=== PATIENT | female | born 1980 | race Caucasian/White ===

== ENCOUNTER 2017-05-25 06:43 | Emergency (ER) ==
[2017-05-25 06:51] VITALS: BP 140/86; TEMP 100.3; BMI 49.4
[2017-05-25] MEDS ORDERED: ZOFRAN 4 MG/2 ML IVP STA ×2 (07:04→09:14)
[2017-05-25] MEDS ORDERED: PROTONIX IV IVP STA (07:04)
[2017-05-25] MEDS ORDERED: MORPHINE 4 MG/ML VIAL IVP STA (07:04)
[2017-05-25] MEDS ORDERED: SODIUM CHLORIDE 1,000 ML IV STA ×2 (07:04→09:39)
--- NOTE | 2017-05-25 07:12 | ED.PDOC ---
General ED Provider: Dr. GAYATRI STEWART Chief Complaint: Nausea/Vomiting Stated Complaint: Patient states she has been having nausea and vomiting for the past 3 days. Also complains of mid upper back pain that has been getting worse over the past two days. Denies any abdomimal pain. Denies vomiting of bile or blood. States the pain is severe. Time Seen by Physician: 07:00 Mode of Arrival: Walk-In Information Source: Patient Nursing and Triage Documentation Reviewed and Agree: Yes GI Complaint Exam - Vomiting/Diarrhea Complaint/Exam Onset/Duration: 3 days Symptoms Are: Still present Episodes of Vomiting over last 24 Hours: 5 Initial Severity: Severe Current Severity: Severe Character of Vomiting: Reports: Non-bilious Aggravating: Reports: Food Associated Signs and Symptoms: Denies: Dizziness, Light-headedness, Melena, Hematemesis, Fever, Abdominal pain, Cramping Non-GI Risk Factors: Reports: None Surgical Obstruction Risk Factors: Reports: None Related Surgical History: Reports: None Abdominal Findings: Present: None Kussmaul Respirations Present: No Differential Diagnoses: Cholelithiasis, Viral Gastroenteritis, UTI Review of Systems - Review Of Systems Constitutional: Reports: No symptoms Eyes: Reports: No symptoms Ears, Nose, Mouth, Throat: Reports: No symptoms Respiratory: Reports: No symptoms Cardiac: Reports: No symptoms GI: Reports: Nausea, Vomiting : Reports: No symptoms Musculoskeletal: Reports: Back pain Skin: Reports: No symptoms Neurological: Reports: No symptoms Endocrine: Reports: No symptoms Hematologic/Lymphatic: Reports: No symptoms All Other Systems: Reviewed and Negative Past Medical History - Past Medical History Previously Healthy: Yes Endocrine: Reports: None Cardiovascular: Reports: None Respiratory: Reports: None Hematological: Reports: None Gastrointestinal: Reports: None Genitourinary: Reports: None Neuro/Psych: Reports: None Musculoskeletal: Reports: None Cancer: Reports: None Last Menstrual Period: 05/17/17 - Surgical History General Surgical History: Reports: None - Family History Family History: Reports: Cancer (Grand mother with history of breast cncer. ) - Social History Smoking Status: Never smoker Hx Substance Use: No Alcohol Screening: Occasionally - Immunizations Tetanus Shot up to Date: Yes Physical Exam - Physical Exam Appearance: Ill-appearing Ill-appearing: Mild Pain Distress: Severe Eyes: EOMI, Conjunctiva clear ENT: Nose normal, Oropharynx normal Neck: Supple Respiratory: Airway patent, Breath sounds clear, Breath sounds equal, Respirations nonlabored Cardiovascular: RRR, Pulses normal, No rub, No murmur GI/: Soft, Nontender, No masses, Bowel sounds normal, No Organomegaly Musculoskeletal: Normal strength, ROM intact, No edema, No calf tenderness Skin: Warm, Dry, Normal color Neurological: Sensation intact, Motor intact, Alert, Oriented Psychiatric: Affect appropriate, Mood appropriate Interpretation - Radiology Interpretation Radiology Interpretation By: Radiologist Radiology Results: Positive Exam Interpreted: CT Scan (Chest ) Radiology Interpretation By: Radiologist Radiology Results: Positive Exam Interpreted: CT Scan (Soft Tissue mass seen within the subcarinal space measuring up to 49 cm in height. concerning for primary neoplasm vs lymphoma) Critical Care Note - Critical Care Note Total Time (mins): 0 Course - Course Hematology/Chemistry: 05/25/17 07:25 05/25/17 07:25 Orders, Labs, Meds: Lab Review 05/25/17 05/25/17 05/25/17 07:25 07:25 07:25 WBC 22.86 H RBC 4.43 Hgb 13.1 Hct 38.5 MCV 86.9 MCH 29.6 MCHC 34.0 RDW Coeff of Kesha 12.9 Plt Count 293 Immature Gran % (Auto) 0.6 Neut % (Auto) 87.2 Lymph % (Auto) 5.1 L [place] % (Auto) 6.9 Eos % (Auto) 0.0 Baso % (Auto) 0.2 Immature Gran # (Auto) 0.1 Neut # 19.9 H Lymph # 1.2 [place] # 1.6 Eos # 0.0 Baso # 0.1 Sodium 137 Potassium 4.2 Chloride 100 Carbon Dioxide 25 Anion Gap 16.2 BUN 6 L Creatinine 0.84 Estimated GFR (MDRD) 77.00 BUN/Creatinine Ratio 7.14 Glucose 144 H Uric Acid Calcium 10.0 Total Bilirubin 1.34 H AST 23 ALT 23 Alkaline Phosphatase 104 H Lactate Dehydrogenase Total Protein 8.1 Albumin 3.4 Globulin 4.7 Albumin/Globulin Ratio 0.72 Amylase 12 L Lipase 9 Serum , Qual Negative Urine Color Urine Clarity Urine pH Ur Specific Hibbs Urine Protein Urine Glucose (UA) Urine Ketones Urine Blood Urine Nitrite Urine Bilirubin Urine Urobilinogen Ur Leukocyte Esterase Urine Microscopic RBC Urine Microscopic WBC Ur Squamous Epith Cells Ur Renal Epithelial Cell Amorphous Sediment Urine Bacteria Urine Mucus 05/25/17 05/25/17 07:40 10:17 WBC RBC Hgb Hct MCV MCH MCHC RDW Coeff of Kesha Plt Count Immature Gran % (Auto) Neut % (Auto) Lymph % (Auto) [place] % (Auto) Eos % (Auto) Baso % (Auto) Immature Gran # (Auto) Neut # Lymph # [place] # Eos # Baso # Sodium Potassium Chloride Carbon Dioxide Anion Gap BUN Creatinine Estimated GFR (MDRD) BUN/Creatinine Ratio Glucose Uric Acid 3.9 Calcium Total Bilirubin AST ALT Alkaline Phosphatase Lactate Dehydrogenase 244 H Total Protein Albumin Globulin Albumin/Globulin Ratio Amylase Lipase Serum , Qual Urine Color [place] Urine Clarity Hazy Urine pH 6.0 Ur Specific Hibbs 1.020 Urine Protein 2+ Urine Glucose (UA) Negative Urine Ketones 3+ Urine Blood 2+ Urine Nitrite Negative Urine Bilirubin 1+ Urine Urobilinogen 1.0 Ur Leukocyte Esterase Negative Urine Microscopic RBC 5-10 Urine Microscopic WBC 2-5 Ur Squamous Epith Cells 5-10 Ur Renal Epithelial Cell 0-2 Amorphous Sediment Trace Urine Bacteria 1+ Urine Mucus 2+ Orders Category Date Time Status NPO REMINDER: IMAGING ONCE CARE 05/25/17 09:39 Completed ED IV/MEDIPORT/POWERPORT .ONCE EMERGENCY 05/25/17 07:04 Active AMYLASE Stat LAB 05/25/17 07:25 Completed CBC W/ AUTO DIFF Stat LAB 05/25/17 07:25 Completed COMPREHENSIVE METABOLIC PANEL Stat LAB 05/25/17 07:25 Completed LACTATE DEHYDROGENASE Stat LAB 05/25/17 10:17 Completed LIPASE Stat LAB 05/25/17 07:25 Completed SERUM Stat LAB 05/25/17 07:25 Completed URIC ACID Stat LAB 05/25/17 10:17 Completed URINALYSIS C & S IF INDICATED Stat LAB 05/25/17 07:40 Completed URINE CULTURE Stat LAB 05/25/17 07:54 Received 0.9 % Sodium Chloride [Saline Flush] MEDS 05/25/17 07:04 Active 1 syr IVF PRN PRN Ketorolac Tromethamine [Toradol] MEDS 05/25/17 09:14 Discontinued 30 mg IVP ONCE STA Morphine Sulfate [Morphine 2 mg/ml Syringe] MEDS 05/25/17 09:14 Discontinued 2 mg IVP ONCE STA Morphine Sulfate [Morphine 4 mg/ml Vial] MEDS 05/25/17 07:04 Discontinued 4 mg IVP ONCE STA Ondansetron HCl/Pf [Zofran 4 mg/2 ml] MEDS 05/25/17 07:04 Discontinued 4 mg IVP ONCE STA Ondansetron HCl/Pf [Zofran 4 mg/2 ml] MEDS 05/25/17 09:14 Discontinued 4 mg IVP ONCE STA Pantoprazole Sodium [Protonix IV] MEDS 05/25/17 07:04 Discontinued 40 mg IVP ONCE STA Sodium Chloride 0.9% [Sodium Chloride] 1,000 ml MEDS 05/25/17 07:04 Discontinued IV BOLUS Sodium Chloride 0.9% [Sodium Chloride] 1,000 ml MEDS 05/25/17 09:[address] ABD/PEL WO RENAL STONE PROT Stat RADS 05/25/17 08:[address] CHEST W/CONTRAST Stat RADS 05/25/17 09:[address] CHEST W/O CONTRAST Stat RADS 05/25/17 08:11 Completed Medications Generic Name Dose Route Start Last Admin Trade Name Freq PRN Reason Stop Dose Admin Sodium Chloride 1 syr 05/25/17 07:04 05/25/17 07:25 Saline Flush IVF 1 syr PRN PRN Administration To flush IV Discontinued Medications Generic Name Dose Route Start Last Admin Trade Name Freq PRN Reason Stop Dose Admin Sodium Chloride 1,000 mls @ 1,000 mls/hr 05/25/17 07:04 05/25/17 07:30 Sodium Chloride IV 05/25/17 08:03 1,000 mls/hr BOLUS STA Administration Sodium Chloride 1,000 mls @ 1,000 mls/hr 05/25/17 09:39 05/25/17 08:45 Sodium Chloride IV 05/25/17 10:38 1,000 mls/hr BOLUS STA Administration Ketorolac Tromethamine 30 mg 05/25/17 09:14 05/25/17 09:33 Toradol IVP 05/25/17 09:15 30 mg ONCE STA Administration Morphine Sulfate 4 mg 05/25/17 07:04 05/25/17 07:50 Morphine 4 Mg/Ml Vial IVP 05/25/17 07:05 4 mg ONCE STA Administration Morphine Sulfate 2 mg 05/25/17 09:14 05/25/17 09:33 Morphine 2 Mg/Ml Syringe IVP 05/25/17 09:15 2 mg ONCE STA Administration Ondansetron HCl 4 mg 05/25/17 07:04 05/25/17 07:47 Zofran 4 Mg/2 Ml IVP 05/25/17 07:05 4 mg ONCE STA Administration Ondansetron HCl 4 mg 05/25/17 09:14 05/25/17 09:29 Zofran 4 Mg/2 Ml IVP 05/25/17 09:15 4 mg ONCE STA Administration Pantoprazole Sodium 40 mg 05/25/17 07:04 05/25/17 07:56 Protonix Iv IVP 05/25/17 07:05 40 mg ONCE STA Administration Vital Signs: Temp Pulse Resp BP Pulse Ox 05/25/17 06:46 100.3 F H 113 H 20 140/86 98 Departure - Departure Time of Disposition: 11:05 Disposition: HOME SELF-CARE Discharge Problem: Nausea, Vomiting, Mediastinum neoplasm Instructions: Soft Tissue Chest Tumor (ED) Condition: Fair Pt referred to PMD for follow-up: Yes Referrals: HILDA WHITNEY [REFERRING] - Additional Instructions: Follow up with PCP in 3 days Take pain medications as needed for pain. Follow up with foam cutting supervisor--dr whitney on saturday Prescriptions: Hydrocodone/Acetaminophen [[place] 5-325 Tablet] 1 tab PO Q6HR PRN #20 tablet PRN Reason: PAIN Promethazine HCl [Phenergan Tab] 25 mg PO Q6H PRN #15 tablet PRN Reason: Nausea / Vomiting Allergies/Adverse Reactions: Allergies No Known Allergies Allergy (Unverified 05/25/17 06:58) Home Medications: Ambulatory Orders Hydrocodone/Acetaminophen [[place] 5-325 Tablet] 1 tab PO Q6HR PRN #20 tablet Ondansetron HCl [Zofran] 4 mg PO Q4HR PRN 05/25/17 Promethazine HCl [Phenergan Tab] 25 mg PO Q6H PRN #15 tablet 05/25/17 Disposition Discussed With: Patient, Family
[2017-05-25 07:29] LABS: BASOPHILS # (AUTO) 0.1 K/uL (0-0.2); BASOPHILS % (AUTO) 0.2 % (0.0-3.0); HEMATOCRIT 38.5 % (37.0-47.0); HEMOGLOBIN 13.1 g/dl (12.0-16.0); IMMATURE GRANULOCYTE % (AUTO) 0.6 % (0.0-5.0); LYMPHOCYTES # (AUTO) 1.2 K/uL (0.60-3.4); LYMPHOCYTES % (AUTO) 5.1 (10.0-50.0); MEAN CORPUSCULAR HEMOGLOBIN 29.6 pg (27.0-31.0); MEAN CORPUSCULAR VOLUME 86.9 fl (81.0-99.0); MONOCYTES # (AUTO) 1.6 K/uL (0.4-2.0); MONOCYTES % (AUTO) 6.9 (0-10); NEUTROPHILS # (AUTO) 19.9 K/ul (2.0-6.9); NEUTROPHILS % (AUTO) 87.2; PLATELET COUNT 293 10^3/uL (140-440); RED BLOOD COUNT 4.43 10^6/ul (4.20-5.40)
[2017-05-25 07:33] LABS: WHITE BLOOD COUNT 22.86 K/ul (4.6-10.2)
[2017-05-25 07:45] LABS: SERUM PREGNANCY INTERNAL QC INTERNAL QC VALID
[2017-05-25 07:50] LABS: ALBUMIN 3.4 g/dL (3.4-5.0); ALBUMIN/GLOBULIN RATIO 0.72; ANION GAP 16.2; BILIRUBIN,TOTAL 1.34 mg/dL (0.00-1.20); BUN/CREATININE RATIO 7.14; CREATININE 0.84 mg/dL (0.60-1.30); POTASSIUM 4.2 mmol/L (3.5-5.10); TOTAL PROTEIN 8.1 g/dL (6.4-8.2)
[2017-05-25 07:51] LABS: BILIRUBIN,URINE 1+ (NEGATIVE); KETONES,URINE 3+ (NEGATIVE); LEUKOCYTE ESTERASE ,URINE Negative (NEGATIVE); NITRITE,URINE Negative (NEGATIVE); PROTEIN,URINE 2+ (NEGATIVE); URINE, BLOOD 2+ (NEGATIVE)
[2017-05-25 07:53] LABS: ADD URINE MICROSCOPIC YES
[2017-05-25 07:55] LABS: BACTERIA,URINE 1+ (NOT PRESENT)
--- NOTE | 2017-05-25 09:01 | CT ---
EXAM: CT chest without intravenous contrast 05/25/2017. Sagittal and coronal reformatted images obt ained HISTORY: Back pain COMPARISON: None. FINDINGS: The heart size appears within normal limits. There is pathologic appearing mediastinal ly mphadenopathy. Pretracheal lymph node on image 27 measures 1.3 cm AP diameter. Subcarinal lymph nod e on image 34 measures 3.6 cm AP diameter. Further workup is recommended. Noncalcified nodule in the left lung base on image 43 measures 8 mm diameter. 4 mm noncalcified nodul e in the right middle lobe can be seen on image 37. Trace right pleural effusion with overlying atel ectasis. No acute osseous abnormality the thoracic spine. IMPRESSION: 1. Pathologic appearing mediastinal lymphadenopathy. Reference measurements above. Further workup is recommended. Contrast enhanced CT could be considered. PET-CT may be of benefit. 2. Bilateral noncalcified nodules. Right middle lobe nodule measures 4 mm. Left lower lobe nodule measures 8 mm. 3. Trace right pleural effusion with overlying atelectasis.
--- NOTE | 2017-05-25 09:02 | CT ---
EXAM: CT scan of the abdomen and pelvis without contrast HISTORY: Vomiting TECHNIQUE: Imaging of the abdomen pelvis was performed without contrast. 3 mm thin axial images and coronal and sagittal reconstructions were provided for interpretation. FINDINGS: Low density changes are seen throughout the liver. The spleen, pancreas, adrenal glands a nd kidneys appear normal. The proximal ureters are normal size. The small and large bowel loops are normal caliber. There is no free air. No acute abnormalities are seen within the anterior abdomina l wall. There is a normal appearance of the appendix. No retroperitoneal abnormalities are seen. The helical images obtained through the pelvis demonstrate a normal appearance of the rectum, urinary bladder. There is no free fluid seen within the pelvis. Lung bases are clear. No lytic or blastic lesions are seen within the osseous structures. IMPRESSION: There is no bowel obstruction or acute inflammatory changes seen within the abdomen and pelvis. There is no ureteral obstruction. Fatty infiltration of the liver.
[2017-05-25] MEDS ORDERED: MORPHINE 2 MG/ML SYRINGE IVP STA (09:14)
[2017-05-25] MEDS ORDERED: TORADOL IVP STA (09:14)
--- NOTE | 2017-05-25 10:24 | CT ---
EXAM: CT scan of the chest with contrast HISTORY: Abnormal lymph nodes within the chest. TECHNIQUE: Imaging of the chest was performed following the intravenous administration of contrast. 5 mm thin axial images and coronal and sagittal reconstructions were provided for interpretation. Comparison CT scan of the chest dated 05/25/2017. FINDINGS: There is abnormal soft tissue mass seen within the subcarinal space seen on axial image nu mber 31. The findings measure approximately 3.5 cm AP, 4.4 cm transverse, and 4.9 cm in height. An a dditional smaller lymph node is identified more superiorly anterior to the trachea seen on axial imag e number 25 measuring approximately 13 mm along the short axis. No lytic or blastic lesions are seen within the osseous structures. IMPRESSION: Abnormal soft tissue mass lesion seen within the subcarinal space as described above valentin suring up to 4.9 cm in height. The findings are concerning for a primary neoplasm of the mediastinum versus lymphoma. Small right pleural effusion.
[2017-05-25 11:08] LABS: URIC ACID 3.9 mg/dL (2.4-6.0)
== END 2017-05-25 12:05 | disposition home or self-care (01) ==
LOC: ED 06:43
DX: R11.2 Nausea with vomiting, unspecified (principal); D49.89 Neoplasm of unspecified behavior of other specified sites; M54.6 Pain in thoracic spine
CPT/HCPCS: 36415; 74176; 80053; 81001; 82150; 83615; 83690; 84550; 84703; 85025; 87086; 96361; 96374; 96375; 96376; 99283

== ENCOUNTER 2017-05-29 00:28 | Emergency (ER) ==
[2017-05-29 00:28] VITALS: BMI 49.4
[2017-05-29] MEDS ORDERED: SOLU-MEDROL 125 MG IM STA (01:22)
[2017-05-29] MEDS ORDERED: TORADOL IVP STA (01:22)
[2017-05-29] MEDS ORDERED: SODIUM CHLORIDE 1,000 ML IV STA ×2 (01:25→03:09)
[2017-05-29] MEDS ORDERED: ZOFRAN 4 MG/2 ML IVP STA (01:25)
[2017-05-29] MEDS ORDERED: SOLU-MEDROL 125 MG IVP STA (01:43)
[2017-05-29] MEDS ORDERED: RACEPINEPHRINE 2.25% NEB STA (01:44)
--- NOTE | 2017-05-29 01:49 | ED.PDOC ---
General ED Provider: Dr. GAYATRI STEWART Chief Complaint: Sore Throat Stated Complaint: Patient is a 36 year old female who complains of sore throat and, has had fever, chills, vomiting the last week. She was seen in this ER Saturday with vomiting had work-up that showed a mass on the chest. [facility] and was sent home with no further workup. She then saw Dr. Miner Lung docotor in [place] who thought it was sarcoidosis or reactive disease and did not plan on a bronchosopy rather that he would like to rescan her in 4-6 weeks. She was however not placed on any antibiotics. She has had sinus drainage, sore throat from vomiting so much. She has had decreased appetite and cannot keep water down, patient states right side of neck is sore with some difficulty breathing. States feels like neck is sore and tightened unable to sleeping. States she has been coughing up white to yellow thick phlegm. Patient is breathing shallow, stating that if she takes deep breaths that right side of her neck hurts worse. Been having a lot of hiccups, denies emesis over the past 24 hours. She also had fever of 100.3 days ago Time Seen by Physician: 01:43 Mode of Arrival: Walk-In Information Source: Patient, Family Exam Limitations: Clinical condition Nursing and Triage Documentation Reviewed and Agree: Yes EENT Complaint Exam - Throat Complaint/Exam Onset/Duration: 2 days Symptoms Are: Still present Timimg: Constant Initial Severity: Moderate Current Severity: Severe Aggravating: Reports: Eating Alleviating: Reports: None Associated Signs and Symptoms: Reports: Dysphagia, Cough, Difficulty breathing. Denies: Vomiting Uvula Midline: Yes Kasandra-tonsillar Fluctuence: No Scarlatinaform Rash Present: No Lesions: Absent: Lip, Gums, Tongue, Buccal Mucosa, Pharynx Exanthem: Absent: Lip, Gums, Tongue, Buccal Mucosa, Pharynx Vesicles: Absent: Lip, Gums, Tongue, Buccal Mucosa, Pharynx Stridor Present: No Sinus Tenderness Present: No Tonsillar Hypertrophy Present: No Tonsillar Exudate Present: No Kasandra-tonsillar Swelling Present: Yes Adenopathy Present: Yes (left neck ) Differential Diagnoses: Sinusitis, Tonsillitis, URI Quality Indicators For Pneumonia: Antibiotics in 6hr-admit Quality Indicators for Non-Traumatic CP and Syncope: EKG performed Review of Systems - Review Of Systems Constitutional: Denies: Fever Eyes: Reports: No symptoms Ears, Nose, Mouth, Throat: Reports: Throat pain Respiratory: Reports: Cough Cardiac: Denies: Chest pain GI: Reports: No symptoms : Reports: No symptoms Musculoskeletal: Reports: No symptoms Skin: Reports: No symptoms Neurological: Reports: Anxiety Endocrine: Reports: No symptoms Hematologic/Lymphatic: Reports: No symptoms All Other Systems: Reviewed and Negative Past Medical History - Past Medical History Previously Healthy: Yes Endocrine: Reports: None Cardiovascular: Reports: None Respiratory: Reports: None Hematological: Reports: None Gastrointestinal: Reports: None Genitourinary: Reports: None Neuro/Psych: Reports: None Musculoskeletal: Reports: None Cancer: Reports: None Last Menstrual Period: 05/17/17 - Surgical History General Surgical History: Reports: None - Family History Family History: Reports: Cancer (Grand mother with history of breast cncer. ) - Social History Smoking Status: Never smoker Hx Substance Use: No Alcohol Screening: Occasionally - Immunizations Tetanus Shot up to Date: Yes Physical Exam - Physical Exam Appearance: Ill-appearing, Obese Ill-appearing: Severe Pain Distress: Moderate Eyes: JUSTA, Conjunctiva clear ENT: Ears normal, Dry mucosa Neck: Supple Respiratory: Airway patent, Breath sounds equal, Breath sounds diminished, Respirations nonlabored Cardiovascular: No rub, Tachycardia GI/: Soft, Nontender Musculoskeletal: No edema Skin: Warm, Dry Neurological: Sensation intact, Motor intact Psychiatric: Anxious Interpretation - Radiology Interpretation Radiology Interpretation By: Radiologist Radiology Results: Positive (critical abscess on the neck) Exam Interpreted: Other (Soft tissue neck ) - Trench Pipe Layer Rate: Tachy Rhythm: Sinus - EKG Interpretation Time of EKG #1: 01:05 Rate: Tachy Rhythm: Sinus Ectopy: None [place]: NL ST Segment: Normal Interpretation: Diffuse S-T Elevation consistent with Pericarditis. Re-Evaluation - Re-Evaluation Time of Re-Evaluation: 03:40 Status: Improved Vital Signs Stable: Yes Physician Notification - Case Discussed Physician Notified: Dr. Nathan Time of Notification: 02:50 (accepted to [place] telemetry but family decided Jennifer due to soft tissue Neck findings and no one is flying) Physician Notified: Dr. Gaetano Puente Time of Notification: 03:00 (accepted to PCU ) Critical Care Note - Critical Care Note Total Time (mins): 85 Course - Course Hematology/Chemistry: 05/29/17 01:45 05/29/17 01:45 Orders, Labs, Meds: Orders Category Date Time Status ED IV/MEDIPORT/POWERPORT .ONCE EMERGENCY 05/29/17 01:25 Active BLOOD CULTURE Stat LAB 05/29/17 01:25 Ordered CBC W/ AUTO DIFF Stat LAB 05/29/17 01:20 Ordered COMPREHENSIVE METABOLIC PANEL Stat LAB 05/29/17 01:20 Ordered LACTIC ACID Stat LAB 05/29/17 01:25 Ordered MONONUCLOSIS SCREEN Stat LAB 05/29/17 Ordered PROCALCITONIN Stat LAB 05/29/17 01:25 Ordered RAPID FLU A/B Stat LAB 05/29/17 01:24 Ordered STREP SCREEN Stat LAB 05/29/17 01:24 Ordered 0.9 % Sodium Chloride [Saline Flush] MEDS 05/29/17 01:25 Ordered 1 syr IVF PRN PRN Ketorolac Tromethamine [Toradol] MEDS 05/29/17 01:22 Discontinued 30 mg IVP ONCE STA Methylprednisolone Sod Succ/Pf [Solu-Medrol 125 mg] MEDS 05/29/17 01:43 Stat 125 mg IVP ONCE STA Ondansetron HCl/Pf [Zofran 4 mg/2 ml] MEDS 05/29/17 01:25 Discontinued 4 mg IVP ONCE STA Sodium Chloride 0.9% [Sodium Chloride] 1,000 ml MEDS 05/29/17 01:25 Active IV BOLUS CHEST, 1V AP ONLY Stat RADS 05/29/17 01:20 Ordered Medications Generic Name Dose Route Start Last Admin Trade Name Freq PRN Reason Stop Dose Admin Sodium Chloride 1,000 mls @ 1,000 mls/hr 05/29/17 01:25 05/29/17 01:35 Sodium Chloride IV 05/29/17 02:24 1,000 mls/hr BOLUS STA Administration Methylprednisolone Sodium Succinate 125 mg 05/29/17 01:43 Solu-Medrol 125 Mg IVP 05/29/17 01:44 ONCE STA Sodium Chloride 1 syr 05/29/17 01:25 05/29/17 01:38 Saline Flush IVF 1 syr PRN PRN Administration To flush IV Discontinued Medications Generic Name Dose Route Start Last Admin Trade Name Freq PRN Reason Stop Dose Admin Ketorolac Tromethamine 30 mg 05/29/17 01:22 Toradol IVP 05/29/17 01:23 ONCE STA Ondansetron HCl 4 mg 05/29/17 01:25 Zofran 4 Mg/2 Ml IVP 05/29/17 01:26 ONCE STA Vital Signs: Temp Pulse Resp BP Pulse Ox 05/29/17 00:29 96.7 F L 113 H 36 H 135/89 94 L Departure - Departure Time of Disposition: 03:45 Disposition: TSF SHORT-TRM HOSP Discharge Problem: Pharyngeal abscess, Elevated liver enzymes Sepsis Qualifiers: Sepsis type: sepsis due to unspecified organism Qualified Code(s): A41.9 - Sepsis, unspecified organism Acute renal failure (ARF) Qualifiers: Acute renal failure type: unspecified Qualified Code(s): N17.9 - Acute kidney failure, unspecified Instructions: Pharyngitis (ED) Condition: Critical Pt referred to PMD for follow-up: No Allergies/Adverse Reactions: Allergies No Known Allergies Allergy (Verified 05/29/17 00:48) Home Medications: Ambulatory Orders Hydrocodone/Acetaminophen [[place] 5-325 Tablet] 1 tab PO Q6HR PRN #20 tablet Promethazine HCl [Phenergan Tab] 25 mg PO Q6H PRN #15 tablet 05/25/17 Diazepam [Valium] 10 mg PO BEDTIME PRN 05/29/17 Pt. Stabilized Within Hospital's Capabilities/Transferred To: [facility] Transfer Form Completed: Yes Disposition Discussed With: Patient, Family
[2017-05-29] MEDS ORDERED: ROCEPHIN 500 MG in SODIUM CHLORIDE 50 ML IV STA (01:50)
[2017-05-29] MEDS ORDERED: ZITHROMAX 500 MG in SODIUM CHLORIDE 250 ML IV STA (01:50)
[2017-05-29 01:57] LABS: HEMATOCRIT 32.8 % (37.0-47.0); HEMOGLOBIN 11.5 g/dl (12.0-16.0); MEAN CORPUSCULAR HEMOGLOBIN 29.6 pg (27.0-31.0); MEAN CORPUSCULAR HGB CONC 35.1 (31.8-35.4); MEAN CORPUSCULAR VOLUME 84.5 fl (81.0-99.0); PLATELET COUNT 409 10^3/uL (140-440); RED BLOOD COUNT 3.88 10^6/ul (4.20-5.40); WHITE BLOOD COUNT 31.14 K/ul (4.6-10.2)
[2017-05-29] MEDS ORDERED: ROCEPHIN ONE (01:59)
[2017-05-29 02:01] LABS: MONO INTERNAL QC INTERNAL QC VALID
--- NOTE | 2017-05-29 02:04 | DI ---
Exam: Chest one-view History: Cough and weakness FINDINGS: Technically inhibited study secondary to light radiographic technique, body habitus limita tions and markedly diminished lung volumes. Bibasilar lung opacities favoring atelectasis. Normal p ulmonary vasculature. No obvious consolidative or infiltrative opacities. No acute chest wall abnor mality. Impression: Technically inhibited study. Bibasilar opacities favoring atelectasis. Pneumonia not e xcluded on the left.
[2017-05-29 02:06] LABS: ANISOCYTOSIS NOT PRESENT (NOT PRESENT)
[2017-05-29 02:08] LABS: FLU INTERNAL QC INTERNAL QC VALID; RAPID FLU A NEGATIVE (NEGATIVE); RAPID FLU B NEGATIVE (NEGATIVE)
[2017-05-29 02:20] LABS: ALBUMIN 2.3 g/dL (3.4-5.0); ALBUMIN/GLOBULIN RATIO 0.45; ANION GAP 23.2; BILIRUBIN,TOTAL 3.11 mg/dL (0.00-1.20); BUN/CREATININE RATIO 12.52; CALCIUM 9.7 mg/dL (8.2-10.2); POTASSIUM 4.2 mmol/L (3.5-5.10); TOTAL PROTEIN 7.4 g/dL (6.4-8.2)
[2017-05-29 02:21] LABS: CREATININE 5.51 mg/dL (0.60-1.30)
[2017-05-29 02:39] VITALS: BP 116/97; TEMP 98
[2017-05-29 02:44] LABS: ERYTHROCYTE SEDIMENTATION RATE 90 mm/hr (0-20); ESR INTERNAL QC INTERNAL QC VALID
--- NOTE | 2017-05-29 02:53 | DI ---
EXAM: Soft tissue neck, two views, 05/29/2017 HISTORY: Dysphagia COMPARISON: None. FINDINGS / IMPRESSION: Abnormal swelling is present throughout the prevertebral soft tissues. There is a vertically oriented mottled gas collection with surrounding soft tissue swelling. The preverte bral soft tissues measure up to approximately 3.6 cm thickness. This extends from the level of the s kull base inferiorly through the inferior most aspect of the study. Further evaluation is needed. Urgent surgical consultation recommended. CT soft tissue neck with in travenous contrast is needed to further characterize this collection. Critical FINDINGS: I personally discussed these findings with MISTI Escobar 05/29/2017 2:45 a.m. for com munication to Dr. Stephens Report faxed to [facility] emergency department 05/29/2017, 2:49 a.m.
[2017-05-29] MEDS ORDERED: VANCOMYCIN 1 GM in SODIUM CHLORIDE 250 ML IV STA (02:57)
[2017-05-29 02:59] LABS: ABG PCO2 29.8 mmHg (35-45); ABG PH 7.358 (7.35-7.45)
[2017-05-29 03:00] LABS: ABG BASE EXCESS -9 (-2.0-2.0); ABG HCO3 16.8 (22.0-26.0); ABG TCO2 18 (22.0-28.0)
== END 2017-05-29 03:49 | disposition short-term general hospital (02) ==
LOC: ED 00:28
DX: J39.1 Other abscess of pharynx (principal); R74.8 Abnormal levels of other serum enzymes; A41.9 Sepsis, unspecified organism; N17.9 Acute kidney failure, unspecified
CPT/HCPCS: 36415; 80053; 82803; 83605; 84145; 84443; 85007; 85025; 85651; 86140; 86308; 87040; 87651; 87804; 87880; 93005; 93010; 94640; 96361; 96365; 96367; 96368; 96375; 99285

== ENCOUNTER 2017-10-26 15:00 | Emergency (ER) ==
[2017-10-26 15:11] VITALS: BP 146/107; TEMP 98.9; BMI 47.2
--- NOTE | 2017-10-26 16:28 | ED.PDOC ---
General ED Provider: Dr. GAYATRI STEWART Chief Complaint: Cough Stated Complaint: Minor cough this past week. Was in the shower this AM when cough became more severe. Started wheezing. she report that has a history of Asthma as child and recently had Strep Angiosis abscess on her chest for which she was hospitalized at [facility] with trach. States is healed now except that her voice is raspy. Time Seen by Physician: 15:10 Mode of Arrival: Walk-In Information Source: Patient Exam Limitations: No limitations Nursing and Triage Documentation Reviewed and Agree: Yes Reviewed sepsis parameters & appropriate labs ordered?: No System Inflammatory Response Syndrome: Not Applicable Sepsis Protocol: For patient's 13 years and over: Temp is 96.8 and below OR 101 and greater Pulse >90 BPM Resp >20/minute Acutely Altered Mental Status Are patient's symptoms suggestive of a new infection, such as: -Pneumonia -Skin, Soft Tissue -Endocarditis -UTI -Bone, Joint Infection -Implantable Device -Acute Abdominal Infection -Wound Infection -Meningitis -Blood Stream Catheter Infection -Unknown System Inflammatory Response Syndrome: Not Applicable Respiratory Complaint Exam - Asthma Complaint/Exam Onset/Duration: 2 days Symptoms Are: Resolved (with home inhailer) Timing: Intermittent Initial Severity: Moderate Current Severity: Mild Character: Reports: Wheezing Aggravating: Reports: Weather change Alleviating: Reports: Inhalers Associated Signs and Symptoms: Reports: SOA. Denies: Fever, Chest pain, Edema, Calf pain, URI, Sinus infection, Rapid breathing, Labored breathing Status Asthmaticus Risk Factors: Reports: None Current Asthma Medication Usage: Yes Recent Antibiotics: No Respiratory Distress: None Accessory Muscle Use: No Retractions: Not Present Diminished Breath Sounds: No Prolonged Expiratory Phase: No Unable to Speak Full Sentences: No Fatigue Present: No Differential Diagnoses: Acute Asthma, URI Review of Systems - Review Of Systems Constitutional: Reports: No symptoms Eyes: Reports: No symptoms Ears, Nose, Mouth, Throat: Reports: No symptoms Respiratory: Reports: Cough, Wheezing Cardiac: Reports: No symptoms GI: Reports: No symptoms : Reports: No symptoms Musculoskeletal: Reports: No symptoms Skin: Reports: No symptoms Neurological: Reports: No symptoms Endocrine: Reports: No symptoms Hematologic/Lymphatic: Reports: No symptoms All Other Systems: Reviewed and Negative Past Medical History - Past Medical History Previously Healthy: Yes Endocrine: Reports: None Cardiovascular: Reports: DVT Respiratory: Reports: None Hematological: Reports: None Gastrointestinal: Reports: None Genitourinary: Reports: None Neuro/Psych: Reports: None Musculoskeletal: Reports: None Cancer: Reports: None Last Menstrual Period: 10/10/17 Other Pertinent Past Medical History: Strep anginosis, DVT due to lenghty hospital stay/immobilization - Surgical History General Surgical History: Reports: Other (Thorasic surgery due to strep angiosis Abscess, Also had to have a Trach.) - Family History Family History: Reports: Cancer (Grand mother with history of breast cncer. ) - Social History Smoking Status: Never smoker Hx Substance Use: No Alcohol Screening: Occasionally Lives: With family Physical Exam - Physical Exam Appearance: Ill-appearing, Obese Ill-appearing: Mild Eyes: JUSTA, EOMI, Conjunctiva clear ENT: Ears normal, Nose normal, Oropharynx normal Respiratory: Airway patent, Breath sounds clear, Breath sounds equal, Respirations nonlabored Cardiovascular: RRR, Pulses normal, No rub, No murmur GI/: Soft, Nontender, No masses, Bowel sounds normal, No Organomegaly Musculoskeletal: Normal strength, ROM intact, No edema, No calf tenderness Skin: Warm, Dry, Normal color Neurological: Sensation intact, Motor intact, Reflexes intact, Cranial nerves intact, Alert, Oriented Psychiatric: Anxious Critical Care Note - Critical Care Note Total Time (mins): 0 Course - Course Hematology/Chemistry: 10/26/17 15:40 10/26/17 15:40 Orders, Labs, Meds: Lab Review 10/26/17 10/26/17 10/26/17 15:30 15:40 15:40 WBC 9.49 RBC 4.80 Hgb 13.5 Hct 40.4 MCV 84.2 MCH 28.1 MCHC 33.4 RDW Coeff of Kesha 13.8 Plt Count 258 Immature Gran % (Auto) 0.2 Neut % (Auto) 72.0 Lymph % (Auto) 21.9 [place] % (Auto) 5.2 Eos % (Auto) 0.4 Baso % (Auto) 0.3 Immature Gran # (Auto) 0.0 Neut # 6.8 Lymph # 2.1 [place] # 0.5 Eos # 0.0 Baso # 0.0 Sodium 139 Potassium 3.7 Chloride 106 Carbon Dioxide 22 Anion Gap 14.7 BUN 8 Creatinine 0.85 Estimated GFR (MDRD) 76.00 BUN/Creatinine Ratio 9.41 Glucose 102 Calcium 9.4 Total Bilirubin 0.4 AST 24 ALT 23 Alkaline Phosphatase 94 Total Protein 8.1 Albumin 3.9 Globulin 4.2 Albumin/Globulin Ratio 0.93 Influenza A (Rapid) Negative by naat Influenza B (Rapid) Negative by naat Orders Category Date Time Status CBC W/ AUTO DIFF Stat LAB 10/26/17 15:40 Completed COMPREHENSIVE METABOLIC PANEL Stat LAB 10/26/17 15:40 Completed FLU A/B MOLECULAR Stat LAB 10/26/17 15:30 Completed MOLECULAR GROUP A STREP Stat LAB 10/26/17 15:30 Completed CHEST, 2 VIEWS PA & LAT Stat RADS 10/26/17 15:28 Taken Vital Signs: Temp Pulse Resp BP Pulse Ox 10/26/17 15:01 98.9 F 95 H 20 146/107 H 98 Departure - Departure Time of Disposition: 16:50 Disposition: HOME SELF-CARE Discharge Problem: URI (upper respiratory infection) Qualifiers: URI type: unspecified viral URI Qualified Code(s): J06.9 - Acute upper respiratory infection, unspecified Instructions: Upper Respiratory Infection (ED) Condition: Stable Pt referred to PMD for follow-up: Yes IPMP verified?: Yes Additional Instructions: Take medications and inhalers as prescribed Follow up with PCP in 3 days Prescriptions: Methylprednisolone [Medrol Dosepak] 4 mg PO DIRECTED #1 pkg Allergies/Adverse Reactions: Allergies No Known Allergies Allergy (Verified 10/26/17 15:10) Home Medications: Ambulatory Orders Apixaban [Eliquis] 2.5 mg PO BID 10/26/17 Methylprednisolone [Medrol Dosepak] 4 mg PO DIRECTED #1 pkg 10/26/17 Disposition Discussed With: Patient, Family
--- NOTE | 2017-10-27 05:49 | DI ---
EXAM: Chest, two views, 10/26/2017 HISTORY: Cough with fever COMPARISON: 05/29/2017 FINDINGS / IMPRESSION: Cardiomediastinal contours appear stable. Basilar interstitial opacitis may relate to atelectasis or pneumonitis. There is no focal pulmonary consolidation. No pleural effusio n or pneumothorax.
== END 2017-10-26 16:56 | disposition home or self-care (01) ==
LOC: ED 15:00
DX: J06.9 Acute upper respiratory infection, unspecified (principal); R05 Cough; Z86.718 Personal history of other venous thrombosis and embolism
CPT/HCPCS: 36415; 80053; 85025; 87502; 87651; 99283